=== PATIENT | male | born 1995 | race African-American/Black ===

== ENCOUNTER 2024-10-15 22:33 | Emergency (ER) | payer OTHER ==
[2024-10-15 22:43] VITALS: BP 148/83; PULSE 98; RESP 18; TEMP 98; BMI 19.8
[2024-10-15] MEDS ORDERED: IBUPROFEN 400 MG TABLET (FP) PO ONE (23:28)
[2024-10-15] MEDS ORDERED: DIPHTH,PERTUSS(ACELL),TET 0.5 ML DISP.SYRIN IM ONE (23:29)
[2024-10-15] MEDS: IBUPROFEN 400 MG TABLET (FP) PO ONE (23:32)
[2024-10-15] MEDS: DIPHTH,PERTUSS(ACELL),TET 0.5 ML DISP.SYRIN IM ONE (23:34)
== END 2024-10-16 00:05 ==
LOC: JER 22:33
PROC: 0HQ1XZZ Repair Face Skin, External Approach (ICD-10-PCS; principal; 2024-10-15)
PROC: 3E0234Z Introduction of Serum, Toxoid and Vaccine into Muscle, Percutaneous Approach (ICD-10-PCS; 2024-10-15)
DX: S01.21XA Laceration without foreign body of nose, initial encounter (principal); M25.521 Pain in right elbow; Z23 Encounter for immunization; W26.8XXA Contact with other sharp object(s), not elsewhere classified, initial encounter
CPT/HCPCS: 12011-25; 73070-TC-RT-FY; 90471; 90715; 99284-25